=== PATIENT | female | born 1955 | race Two or more races ===

== ENCOUNTER 2021-06-13 19:41 | Inpatient (IN) | payer OTHER ==
[~2021-06-13] VITALS: Ht 170.2 cm; Wt 69.9 kg
[2021-06-13 22:22] LABS: Basophils # (auto) 0 10 ^3/uL (0-0.2); Basophils % (auto) 0.1 % (0.0-2.0); Eosinophils # (auto) 0 10 ^3/uL (0-0.8); Hematocrit 35.8 % (36.0-46.0); Hemoglobin 12.4 g/dL (12.2-16.2); Lymphocytes # (auto) 0.8 10 ^3/uL (0.4-5.4); Mean Corpuscular Hemoglobin 29.8 pg (28.0-32.0); Mean Corpuscular Hgb Conc. 34.5 g/dL (32.0-36.0); Mean Corpuscular Volume 86.3 fL (80.0-100.0); Monocytes # (auto) 0.6 10 ^3/uL (0-1.3); Monocytes % (auto) 7.6 % (0.0-12.0); Neutrophils # (auto) 6.6 10 ^3/uL (1.6-8.6); Neutrophils % (auto) 82.3 % (37.0-80.0); Nucleated Red Blood Cells % 0.1 %; Red Blood Cells 4.15 10^6/uL (4.0-5.20); Red Cell Distribution Width 13.6 % (11.8-14.3)
[2021-06-13] MEDS ORDERED: DexAMETHasone SOD PHOS 10MG/1ML VIAL INJ IV ONE (22:30)
[2021-06-13 23:00] LABS: Albumin 2.8 g/dL (3.4-5.0); BUN/Creatinine Ratio 15.9; Bilirubin, Total 0.3 mg/dL (0.2-1.0); Calcium 8.6 mg/dL (8.5-10.1); Magnesium 3.7 mg/dL (1.6-2.6); Total Protein 7.6 g/dL (6.4-8.2)
[2021-06-13 23:08] LABS: Potassium 2.5 mmol/L (3.5-5.1)
[2021-06-14] MEDS ORDERED: MORPHINE SULFATE INJECTION 2 MG/ML SYRG IV PRN (01:00)
[2021-06-14] MEDS ORDERED: NITROGLYCERIN 0.4 MG SL TAB SL PRN (01:00)
[2021-06-14] MEDS ORDERED: cefTRIAXone 1GM/50ML D5W 50 ML IV ONE (01:00)
[2021-06-14] MEDS ORDERED: ACETAMINOPHEN 500 MG TAB PO PRN (01:00)
[2021-06-14] MEDS ORDERED: POTASSIUM CHL 20 Meq TABLET PO ONE (01:00)
[2021-06-14] MEDS ORDERED: TEMAZEPAM 15 MG CAP PO PRN (01:00)
[2021-06-14 02:12] LABS: Magnesium 3.4 mg/dL (1.6-2.6)
[2021-06-14 02:44] LABS: Urine Bacteria NONE SEEN /hpf (None Seen); Urine Blood TRACE /uL (Negative); Urine Hyaline Cast MOD /lpf (0 - 2); Urine Specific Gravity 1.015 (1.001-1.035); Urine WBC 4 /hpf (0 - 5)
[2021-06-14] MEDS: POTASSIUM CHL 20MEQ/50ML 50 ML IV SCH ×2 (03:43→06:17)
[2021-06-14 04:07] VITALS: BP 144/81
[2021-06-14 05:49] VITALS: BP 144/81
[2021-06-14 08:30] VITALS: BP 127/78
[2021-06-14] MEDS: DexAMETHasone SOD PHOS 10MG/1ML VIAL INJ IV SCH (09:10)
[2021-06-14] MEDS: AZITHROMYCIN 500MG/ 250ML 250 ML IV SCH (09:10)
[2021-06-14] MEDS: ZINC SULFATE 220mg CAP or TAB PO SCH (09:11)
[2021-06-14] MEDS: CHOLECALCIFEROL (VITD3) 2,000 UNIT CAP/TAB PO SCH (09:11)
[2021-06-14] MEDS: ASCORBIC ACID 1,000 MG TAB PO SCH (09:11)
[2021-06-14] MEDS: ENOXAPARIN SOD 40 MG/0.4 ML SYRINGE SC SCH ×2 (10:20→21:11)
[2021-06-14] MEDS ORDERED: REMDESIVIR PER PHARMACY 0 ML IV SCH (11:45)
[2021-06-14 12:03] LABS: BUN/Creatinine Ratio 14.1; Calcium 8.3 mg/dL (8.5-10.1); Potassium 3.4 mmol/L (3.5-5.1)
[2021-06-14 12:09] LABS: Magnesium 2.5 mg/dL (1.6-2.6); Phosphorus 2.8 mg/dL (2.5-4.90)
[2021-06-14 12:30] VITALS: BP 154/85
[2021-06-14] MEDS ORDERED: POTASSIUM CHL 10 Meq TABLET PO ONE (12:45)
[2021-06-14] MEDS ORDERED: POTASSIUM EFFERVESENT TAB 25 MEQ PO ONE (15:00)
[2021-06-14] MEDS ORDERED: REMDESIVIR 200 MG in NS 210ml LOADING DOSE ADULT IV ONE (15:00)
[2021-06-14] MEDS ORDERED: guaiFENesin-DM 100/10mg/5ml SYR PO PRN (15:30)
[2021-06-14 17:00] VITALS: BP 139/70
[2021-06-14] MEDS: cefTRIAXone 1GM/50ML D5W 50 ML IV SCH (21:11)
[2021-06-14 22:00] VITALS: BP 148/81
[2021-06-15 05:00] VITALS: BP 135/70
[2021-06-15 07:06] LABS: Hemoglobin 11.5 g/dL (12.2-16.2)
[2021-06-15 07:08] LABS: Mean Corpuscular Hemoglobin 30.1 pg (28.0-32.0); Mean Corpuscular Hgb Conc. 34.9 g/dL (32.0-36.0); Mean Corpuscular Volume 86.3 fL (80.0-100.0); Red Blood Cells 3.83 10^6/uL (4.0-5.20); Red Cell Distribution Width 13.7 % (11.8-14.3); White Blood Cell 10.3 10^3/uL (4.4-10.8)
[2021-06-15 07:12] LABS: Band Neutrophils % (manual) 0; Basophils % (manual) 0 (0.0-2.0); Blast Cells 0; Eosinophils % (manual) 0 (0-7); Metamyelocytes % 0; Myelocytes % 0; Promyelocytes % 0; Reactive Lymphocytes 0
[2021-06-15 07:22] LABS: Calcium 8.1 mg/dL (8.5-10.1); Potassium 3.3 mmol/L (3.5-5.1)
[2021-06-15 07:30] LABS: Albumin 2.4 g/dL (3.4-5.0); BUN/Creatinine Ratio 18.5; Bilirubin, Total 0.3 mg/dL (0.2-1.0); Total Protein 6.2 g/dL (6.4-8.2)
[2021-06-15 07:50] LABS: Lymphocytes % (manual) 17 (10.0-50.0); Monocytes % (manual) 2 (0-12)
[2021-06-15 09:00] VITALS: BP 144/75
[2021-06-15] MEDS: DexAMETHasone SOD PHOS 10MG/1ML VIAL INJ IV SCH (09:13)
[2021-06-15] MEDS: ZINC SULFATE 220mg CAP or TAB PO SCH (09:14)
[2021-06-15] MEDS: CHOLECALCIFEROL (VITD3) 2,000 UNIT CAP/TAB PO SCH (09:14)
[2021-06-15] MEDS: ASCORBIC ACID 1,000 MG TAB PO SCH (09:14)
[2021-06-15] MEDS: AZITHROMYCIN 500MG/ 250ML 250 ML IV SCH (09:14)
[2021-06-15] MEDS: ENOXAPARIN SOD 40 MG/0.4 ML SYRINGE SC SCH ×2 (09:14→21:36)
[2021-06-15] MEDS ORDERED: FUROSEMIDE 40 MG TAB PO SCH (10:00)
[2021-06-15] MEDS ORDERED: POTASSIUM EFFERVESENT TAB 25 MEQ PO SCH (10:00)
[2021-06-15] MEDS: FUROSEMIDE 40 MG/4 ML VIAL IV SCH (11:23)
[2021-06-15] MEDS: FLORASTOR (S. BOULARDII) 250 MG CAP PO SCH (11:23)
[2021-06-15] MEDS: POTASSIUM EFFERVESENT TAB 25 MEQ PO SCH ×2 (11:23→21:36)
[2021-06-15 13:00] VITALS: BP 122/76
[2021-06-15] MEDS: REMDESIVIR 100mg 100 MG in SODIUM CHL 0.9% 230 ML IV SCH (16:19)
[2021-06-15 17:00] VITALS: BP 129/77
[2021-06-15] MEDS: cefTRIAXone 1GM/50ML D5W 50 ML IV SCH (21:35)
[2021-06-15 22:00] VITALS: BP 140/70
[2021-06-16 06:52] LABS: Potassium 3.3 mmol/L (3.5-5.1)
[2021-06-16 07:04] LABS: Albumin 2.2 g/dL (3.4-5.0); BUN/Creatinine Ratio 27.9; Bilirubin, Total 0.4 mg/dL (0.2-1.0); Calcium 7.9 mg/dL (8.5-10.1); Total Protein 5.5 g/dL (6.4-8.2)
[2021-06-16 08:55] VITALS: BP 139/58
[2021-06-16] MEDS: ALBUTEROL SULF HFA 90MCG INH 200DOSE IN PRN (09:14)
[2021-06-16] MEDS: ASCORBIC ACID 1,000 MG TAB PO SCH (10:00)
[2021-06-16] MEDS: ENOXAPARIN SOD 40 MG/0.4 ML SYRINGE SC SCH ×2 (11:04→21:02)
[2021-06-16] MEDS: FUROSEMIDE 40 MG/4 ML VIAL IV SCH (11:05)
[2021-06-16] MEDS: ZINC SULFATE 220mg CAP or TAB PO SCH (11:06)
[2021-06-16] MEDS: CHOLECALCIFEROL (VITD3) 2,000 UNIT CAP/TAB PO SCH (11:06)
[2021-06-16] MEDS: DexAMETHasone SOD PHOS 10MG/1ML VIAL INJ IV SCH (11:06)
[2021-06-16] MEDS: POTASSIUM EFFERVESENT TAB 25 MEQ PO SCH ×2 (11:07→21:02)
[2021-06-16 13:00] VITALS: BP 132/65
[2021-06-16] MEDS: AZITHROMYCIN 500MG/ 250ML 250 ML IV SCH (13:16)
[2021-06-16] MEDS: FLORASTOR (S. BOULARDII) 250 MG CAP PO SCH (13:56)
[2021-06-16 16:00] VITALS: BP 140/73
[2021-06-16] MEDS: REMDESIVIR 100mg 100 MG in SODIUM CHL 0.9% 230 ML IV SCH (16:02)
[2021-06-16 16:17] VITALS: BP 124/68
[2021-06-16 17:00] VITALS: BP 143/62
[2021-06-16] MEDS: ONDANSETRON HCL 4 MG/2 ML VIAL IV PRN (19:46)
[2021-06-16] MEDS: cefTRIAXone 1GM/50ML D5W 50 ML IV SCH (19:56)
[2021-06-16] MEDS: DOXYCYCLINE 100 MG TAB/CAP PO SCH (21:02)
[2021-06-16 22:00] VITALS: BP 139/66
[2021-06-17] VITALS (7 sets, daily range): BP systolic 100–139; BP diastolic 55–63
[2021-06-17 08:11] LABS: Potassium 3.6 mmol/L (3.5-5.1)
[2021-06-17 08:18] LABS: Albumin 2.1 g/dL (3.4-5.0); BUN/Creatinine Ratio 26.5; Bilirubin, Total 0.4 mg/dL (0.2-1.0); Total Protein 5.3 g/dL (6.4-8.2)
[2021-06-17] MEDS: ONDANSETRON HCL 4 MG/2 ML VIAL IV PRN (08:39)
[2021-06-17] MEDS: POTASSIUM EFFERVESENT TAB 25 MEQ PO SCH ×2 (09:40→23:18)
[2021-06-17] MEDS: cefTRIAXone 1GM/50ML D5W 50 ML IV SCH (09:40)
[2021-06-17] MEDS: DexAMETHasone SOD PHOS 10MG/1ML VIAL INJ IV SCH (09:41)
[2021-06-17] MEDS: FUROSEMIDE 40 MG/4 ML VIAL IV SCH (09:41)
[2021-06-17] MEDS: FLORASTOR (S. BOULARDII) 250 MG CAP PO SCH (09:42)
[2021-06-17] MEDS: CHOLECALCIFEROL (VITD3) 2,000 UNIT CAP/TAB PO SCH (09:42)
[2021-06-17] MEDS: ZINC SULFATE 220mg CAP or TAB PO SCH (09:43)
[2021-06-17] MEDS: DOXYCYCLINE 100 MG TAB/CAP PO SCH ×2 (09:43→23:18)
[2021-06-17] MEDS: ENOXAPARIN SOD 40 MG/0.4 ML SYRINGE SC SCH ×2 (09:44→23:18)
[2021-06-17] MEDS: ASCORBIC ACID 1,000 MG TAB PO SCH (10:00)
[2021-06-17] MEDS: REMDESIVIR 100mg 100 MG in SODIUM CHL 0.9% 230 ML IV SCH (15:26)
[2021-06-17] MEDS: ALBUTEROL SULF HFA 90MCG INH 200DOSE IN PRN (21:18)
[2021-06-18 05:43] VITALS: BP 138/80
[2021-06-18 05:55] LABS: Basophils # (auto) 0 10 ^3/uL (0-0.2); Eosinophils # (auto) 0 10 ^3/uL (0-0.8); Lymphocytes # (auto) 0.9 10 ^3/uL (0.4-5.4); Neutrophils # (auto) 6.2 10 ^3/uL (1.6-8.6)
[2021-06-18] MEDS: ALBUTEROL SULF HFA 90MCG INH 200DOSE IN PRN (05:59)
[2021-06-18 06:00] LABS: Basophils % (auto) 0.5 % (0.0-2.0); Eosinophils % (auto) 0.2 % (0.0-7.0); Hematocrit 35.3 % (36.0-46.0); Hemoglobin 11.7 g/dL (12.2-16.2); Lymphocytes % (auto) 11.8 % (10.0-50.0); Mean Corpuscular Hemoglobin 28.9 pg (28.0-32.0); Mean Corpuscular Volume 87.5 fL (80.0-100.0); Monocytes # (auto) 0.6 10 ^3/uL (0-1.3); Monocytes % (auto) 8.1 % (0.0-12.0); Neutrophils % (auto) 79.4 % (37.0-80.0); Red Blood Cells 4.03 10^6/uL (4.0-5.20); Red Cell Distribution Width 13.6 % (11.8-14.3); White Blood Cell 7.9 10^3/uL (4.4-10.8)
[2021-06-18 06:17] LABS: Albumin 2.3 g/dL (3.4-5.0); Calcium 8.2 mg/dL (8.5-10.1); Potassium 4.3 mmol/L (3.5-5.1)
[2021-06-18 06:25] LABS: BUN/Creatinine Ratio 26.9; Bilirubin, Total 0.4 mg/dL (0.2-1.0); CRP High Sensitivity 11.3 mg/dL (< 0.3); Total Protein 5.8 g/dL (6.4-8.2)
[2021-06-18 08:00] VITALS: BP 117/72
[2021-06-18 09:00] VITALS: BP 117/72
[2021-06-18] MEDS ORDERED: CHOL1CAP47 PO (09:12)
[2021-06-18] MEDS ORDERED: ZINC220T6 PO (09:12)
[2021-06-18] MEDS ORDERED: ASCO10003 PO (09:12)
[2021-06-18] MEDS ORDERED: ALBUAER3 IN (09:12)
[2021-06-18] MEDS ORDERED: DEX4T PO (09:12)
[2021-06-18] MEDS: cefTRIAXone 1GM/50ML D5W 50 ML IV SCH (10:22)
[2021-06-18] MEDS: DexAMETHasone SOD PHOS 10MG/1ML VIAL INJ IV SCH (10:22)
[2021-06-18] MEDS: FUROSEMIDE 40 MG/4 ML VIAL IV SCH (10:22)
[2021-06-18] MEDS: ZINC SULFATE 220mg CAP or TAB PO SCH (10:23)
[2021-06-18] MEDS: DOXYCYCLINE 100 MG TAB/CAP PO SCH (10:23)
[2021-06-18] MEDS: FLORASTOR (S. BOULARDII) 250 MG CAP PO SCH (10:23)
[2021-06-18] MEDS: POTASSIUM EFFERVESENT TAB 25 MEQ PO SCH (10:23)
[2021-06-18] MEDS: ENOXAPARIN SOD 40 MG/0.4 ML SYRINGE SC SCH (10:24)
[2021-06-18] MEDS: CHOLECALCIFEROL (VITD3) 2,000 UNIT CAP/TAB PO SCH (10:24)
[2021-06-18] MEDS: ASCORBIC ACID 1,000 MG TAB PO SCH (10:24)
[2021-06-18] MEDS ORDERED: ASPI1TAB20 PO (10:34)
[2021-06-18 12:55] VITALS: BP 117/72
[2021-06-18] MEDS: REMDESIVIR 100mg 100 MG in SODIUM CHL 0.9% 230 ML IV SCH (15:22)
== END 2021-06-18 18:20 | disposition home or self-care (01) | DRG 871 ==
LOC: ER 19:45 → TELE 06-14 00:47 → TELE-EAST 06-14 03:21
PROVIDERS: ADMIT Nurse Practitioner; ATTEND Internal Medicine
PROC: XW033E5 Introduction of Remdesivir Anti-infective into Peripheral Vein, Percutaneous Approach, New Technology Group 5 (ICD-10-PCS; principal; 2021-06-14)
DX: A41.89 Other specified sepsis (principal); U07.1 COVID-19; J12.82 Pneumonia due to coronavirus disease 2019; E43 Unspecified severe protein-calorie malnutrition; J96.01 Acute respiratory failure with hypoxia; E87.6 Hypokalemia; Z23 Encounter for immunization; D89.839 Cytokine release syndrome, grade unspecified; R74.01 Elevation of levels of liver transaminase levels; Z68.23 Body mass index [BMI] 23.0-23.9, adult
CPT/HCPCS: 36415; 36600; 71045; 80048; 80053; 81001; 82728; 82805; 83615; 83735; 84100; 84484; 85007; 85025; 85027; 85379; 86141; 87426; 93005; 94640; 96365; 96375; G0378; J0696; J1100; J2405